=== PATIENT | male | born 1990 | race African-American/Black ===

== ENCOUNTER 2017-08-23 14:10 | Emergency (ER) | payer OTHER ==
[~2017-08-23] VITALS: Ht 170.2 cm; Wt 129.3 kg
[~2017-08-23 14:10] MED LIST: ALLEGRA30 MG PO; FLONASE; FLOVENT DISKUS50 MCG; PREDNISONE 5 MG5 M1 PO; PROVENTIL; RITALIN5 MG PO
[2017-08-23 15:29] VITALS: BP 146/82
[2017-08-23] MEDS ORDERED: SENNA-DOCUSATE1 EACH PO (15:45)
== END 2017-08-23 16:30 | disposition home or self-care (01) ==
LOC: ER 14:10
DX: K59.00 Constipation, unspecified (principal); J45.909 Unspecified asthma, uncomplicated

== ENCOUNTER 2018-01-26 18:01 | Emergency (ER) | payer OTHER ==
[~2018-01-26] VITALS: Ht 172.7 cm; Wt 126.1 kg
[~2018-01-26 18:01] MED LIST changes: +SENNA-DOCUSATE1 EACH PO
[2018-01-26] MEDS ORDERED: FLONASE 0.05%50 MCG NASAL (19:14)
[2018-01-26] MEDS ORDERED: NAPROSYN500 MG PO (19:14)
[2018-01-26] MEDS ORDERED: NORFLEX100 MG PO (19:14)
[2018-01-26 19:45] VITALS: BP 154/90
== END 2018-01-26 19:48 | disposition home or self-care (01) ==
LOC: ER 18:01
DX: M70.62 Trochanteric bursitis, left hip (principal); J30.9 Allergic rhinitis, unspecified; F17.210 Nicotine dependence, cigarettes, uncomplicated; Z90.89 Acquired absence of other organs; Y93.89 Activity, other specified

== ENCOUNTER 2018-05-17 09:41 | Emergency (ER) | payer OTHER ==
[~2018-05-17] VITALS: Ht 172.7 cm; Wt 129.3 kg
[~2018-05-17 09:41] MED LIST changes: +FLONASE 0.05%50 MCG NASAL; +NAPROSYN500 MG PO; +NORFLEX100 MG PO
[2018-05-17] MEDS ORDERED: NAPROSYN500 MG PO (10:30)
[2018-05-17] MEDS ORDERED: NORFLEX100 MG PO (10:30)
[2018-05-17 11:06] VITALS: BP 134/77
== END 2018-05-17 11:07 | disposition home or self-care (01) ==
LOC: ER 09:41
DX: S39.012A Strain of muscle, fascia and tendon of lower back, initial encounter (principal); J45.909 Unspecified asthma, uncomplicated; F17.210 Nicotine dependence, cigarettes, uncomplicated; Z98.890 Other specified postprocedural states; X50.9XXA Other and unspecified overexertion or strenuous movements or postures, initial encounter; Y99.0 Civilian activity done for income or pay; Y92.89 Other specified places as the place of occurrence of the external cause